=== PATIENT | female | born 1960 | race Caucasian/White ===

== ENCOUNTER → 2016-10-13 | Outpatient (CLI) | payer MEDICARE, BC ==
[~2016-10-13] MED LIST: AMBI5TAB PO; BACT800T5 PO; CYCL5TAB PO; DILA8TAB4 PO; DULC100C PO; EFFE150C PO; FLEE5TAB PO; GABA400C5 PO; IBUP400T20 PO; METH5TAB PO; MIRA33504 PO; MOTR200T4 PO; SOMA250T PO; VENL75TA PO; XANA2TAB2 PO; XARE20TA PO
[2016-10-13 12:44] LABS: AUTOMATED NEUTROPHIL # 2.7 TH/MM3 (1.8-7.7); BASOPHIL % 0.5 % (0.0-2.0); EOSINOPHIL # 0.2 TH/MM3 (0-0.4); EOSINOPHIL % 3.8 % (0.0-4.0); HEMATOCRIT 38.6 % (35.0-46.0); HEMO FLAGS DIFF FINAL; LYMPH % 41.2 % (9.0-44.0); LYMPHOCYTE # 2.4 TH/MM3 (1.0-4.8); MEAN CELL VOLUME 83.7 FL (80.0-100.0); MEAN CORPUSCULAR HEMOGLOBIN 27.8 PG (27.0-34.0); MEAN CORPUSCULAR HGB CONC 33.2 % (32.0-36.0); MONO % 8.2 % (0.0-8.0); NEUT % 46.3 % (16.0-70.0); PLATELET COUNT 226 TH/MM3 (150-450); RED BLOOD COUNT 4.61 MIL/MM3 (4.00-5.30); RED CELL DISTRIBUTION WIDTH 14.2 % (11.6-17.2); WHITE BLOOD COUNT 5.9 TH/MM3 (4.0-11.0)
[2016-10-13 12:53] LABS: APTT (PATIENT) 27.7 SEC (24.3-30.1); INTERNATIONAL NORMALIZED RATIO 0.9 RATIO; PROTHROMBIN TIME - PATIENT 10.3 SEC (9.8-11.6)
[2016-10-13 13:05] LABS: ANION GAP 7 MEQ/L (5-15); AST (GOT) 13 U/L (15-37); BICARBONATE 30.3 MEQ/L (21.0-32.0); BLOOD UREA NITROGEN 9 MG/DL (7-18); CHLORIDE 100 MEQ/L (98-107); GLOMERULAR FILTRATION RATE 74 ML/MIN (>89); GLUCOSE,FASTING 95 MG/DL (74-99); POTASSIUM 3.8 MEQ/L (3.5-5.1); SODIUM (NA) 137 MEQ/L (136-145)
[2016-10-13 13:05] LABS: BACTERIA, URINE MANY /hpf; BLOOD, URINE SMALL (NEG); COMMENT (UR) CULTURE INDICATED; CULTURE IF INDICATED CULTURE INDICATED; GLUCOSE,URINE NEG (NEG); KETONE, URINE NEG (NEG); MUCUS URINE FEW /lpf (OCC); NITRITE,URINE NEG (NEG); PH, URINE 5.5 (5.0-8.5); SQUAMOUS EPITHELIAL CELL URINE 4 /hpf (0-5); URINE COLOR YELLOW (YELLW/STRAW)
[2016-10-13 13:08] LABS: ALKALINE PHOSPHATASE 107 U/L (45-117); ALT (GPT) 16 U/L (10-53); TOTAL BILIRUBIN ADULT 0.3 MG/DL (0.2-1.0)
--- NOTE | 2016-10-14 13:03 | EKG ---
Date Performed: 10/13/2016 Time Performed: 12:15:07 PTAGE: 56 years EKG: SINUS BRADYCARDIA BORDERLINE ECG NO PREVIOUS TRACING DOCTOR: Gabe Bowen Interpretating Date/Time 10/14/2016 12:59:20
== END ==
LOC: CPRE 11:47
PROVIDERS: ATTEND Neurological Surgery
DX: Z01.810 Encounter for preprocedural cardiovascular examination (principal); Z01.811 Encounter for preprocedural respiratory examination; Z01.812 Encounter for preprocedural laboratory examination; G89.29 Other chronic pain
CPT/HCPCS: 36415; 80053; 81001; 85025; 85610; 85730; 87077; 87086; 87186; 93005

== ENCOUNTER → 2016-10-20 | Day surgery (SDC) | payer MEDICARE, BC ==
[~2016-10-20] VITALS: Ht 167.6 cm; Wt 76.9 kg
[~2016-10-20] MED LIST changes: +*HYDROmorphone PF 1 MG VIAL PERIprocedural Use ONLY ONE; +ACETAMINOPHEN 1000 MG/100 ML VIAL IV ONE; -AMBI5TAB PO; +BUPIVACAINE HCL PF 0.5% 30 ML VIAL ONE; -CYCL5TAB PO; +DO NOT ADM ANY ANTICOAGULANT DRUGS XX PRN; +FAMOTIDINE 20 MG/2 ML VIAL ONE; +GELFOAM SIZE 100 ONE; +HYDROmorphone HCL PF 2 MG/ML VIAL IV PRN; +HYDROmorphone HCL PF 2 MG/ML VIAL ONE; +INSULIN HUMAN REGULAR 1,000 UNITS/10 ML VIAL SQ PRN; +LACTATED RINGER'S 1000 ML INJ 1,000 ML IV ONE; +LACTATED RINGER'S 1000 ML IV SCH; +LIDOCAINE 1%/EPINEPHrine 1:100,000 SOLN 30 ML VIAL ONE; +METOCLOPRAMIDE HCL 10 MG/2 ML VIAL ONE; +METOPROLOL TARTRATE 25 MG TAB PO PRN; +MIDAZOLAM HCL 2 MG/2 ML VIAL ONE; -MOTR200T4 PO; +NEOSTIGMINE METHYLSULFATE 10 MG/10 ML VIAL IV PUSH ONE; +ONDANSETRON HCL 4 MG/2 ML VIAL IV PUSH ONE; +ONDANSETRON HCL 4 MG/2 ML VIAL IV PUSH PRN; +PROPOFOL 200 MG/20 ML AMP IV ONE; +SODIUM CHLORID 0.9% 500 ML IV SCH; -SOMA250T PO; +THROMBIN (TOPICAL) 5,000 UNIT VIAL ONE; -XARE20TA PO; +ceFAZolin 2 GM PREMIX 50 ML IV SCH; +ceFAZolin 2 GM PREMIX 50 ML ONE; +ePHEDrine/NS 25 MG/5 ML SYR IV ONE; +fentaNYL CITRATE 250 MCG/5 ML AMP ONE
[2016-10-20 07:07] VITALS: BP 113/41; PULSE 50; RESP 16; TEMP 98; O2SAT 94
--- NOTE | 2016-10-20 10:53 | RADRPT ---
EXAM DATE/TIME: 10/20/2016 10:25 COMPARISON: No previous studies available for comparison. INDICATIONS : Lead placement T8,T9. MEDICAL HISTORY : None. SURGICAL HISTORY : None. ENCOUNTER: Initial ACUITY: 1 day PAIN SCORE: Non-responsive. LOCATION: Thoracic spine. FINDINGS: 2 AP coned-down views of the lower thoracic spine were obtained and demonstrate leads in place projec ramez over the lower thoracic spine. The exact level cannot be ascertained since the thoracolumbar junc tion is not visualized. CONCLUSION: Leads in place over the lower thoracic spine. Jareth Villalobos MD on October 20, 2016 at 10:51 Board Certified Radiologist. This report was verified electronically.
[2016-10-20 12:10] VITALS: BP 114/52; PULSE 56; RESP 16; TEMP 97; O2SAT 99
--- NOTE | 2016-10-21 16:57 | MP ---
cc: DANIEL THOMASON MD DATE OF SURGERY 10/20/2016 PREOPERATIVE DIAGNOSIS Chronic pain syndrome. POSTOPERATIVE DIAGNOSIS Chronic pain syndrome. PROCEDURE Implant of Penta lead from [employer], serial number [id number], reference number 3228 and Pro[employer] 5 Elite intimal pulse generator, reference number 3660, serial number [id number]. INDICATION The patient is a 56-year-old lady who had previous back surgery and years of medical management for chronic back and leg pain. She has hyperesthetic pain with burning and sharp pain in her right leg as well as mechanical back pain. She underwent a trial with almost complete relief of her pain with stimulation with 12 octades closer to the midline at T8-9. She presents now for implantation of a permanent stimulator. ANESTHESIA General SURGEON Ame Thomason MD TECHNIQUE The patient was brought to the operating room, placed supine on the OR cart. Anesthesia was induced and the patient intubated orally. She was then turned prone onto a Russell frame. The T8-9 vertebra were identified with fluoroscopic examination and clearly marked. The internal pulse generator was planned in the left side in the mid axillary fat pad in a region chosen by the patient prior to surgery. Both incisions were prepped on the back with Betadine followed by ChloraPrep and allowed to dry. Both incisions were infiltrated with 1% lidocaine with epinephrine in a 1:1 mixture with 0.5% Marcaine. The incision was made first at the internal pulse generator site, measured 5 cm in length. A subcutaneous pocket was made with the monopolar cautery. The wound was then packed with a Telfa and allowed to dry. The back incision was then opened in the midline at T8-9. A subperiosteal dissection was carried out at T8-9. The microscope was then brought into the field. Under the microscope, a T9 laminotomy was performed. However, she continued to have scar tissue preventing advancement of the Penta trial and the a laminectomy was performed at T9. This allowed the Penta lead to be advanced without difficulty in the epidural space between the pedicles of T8 and T9 in the midline slightly to the right side. Hemostasis was obtained with bone wax on the bone. Bipolar cautery for the epidural veins, FloSeal. A relief loop was left in the epidural space and the lead was further secured with 4 mL of fibrin glue. The leads were then tunneled to the internal pulse generator. They were then connected to the IPG and torqued to the usual torque with the torque screwdriver. Impedances were checked and they were between 200 and 1000 ohms. The IPG was secured in its pocket. The battery wound was closed at the dermal level with 2-0 Vicryl suture and at the skin level with 4-0 subcuticular Monocryl suture. In the back, the muscle were was reapproximated with 2-0 Vicryl sutures. The fascia was closed with interrupted 2-0 Vicryl sutures. The dermis was closed with interrupted 2-0 Vicryl sutures. The skin edges were reapproximated with 4-0 Monocryl suture. Dermabond was used on the battery pocket skin incision. Steri-Strips were used on the back incision. Both incisions were then further dressed with Telfa and Medipore tape. The patient was then extubated and brought back to recovery room in a stable condition. MD JUSTIN Burnett/ /10:16 AM /4:46 PM [facility]
== END | disposition home or self-care (01) ==
LOC: HSDC 06:29
PROVIDERS: ATTEND Neurological Surgery
DX: G89.29 Other chronic pain (principal); M79.604 Pain in right leg; M96.1 Postlaminectomy syndrome, not elsewhere classified; R20.3 Hyperesthesia; R35.0 Frequency of micturition; R15.9 Full incontinence of feces; F17.210 Nicotine dependence, cigarettes, uncomplicated; R26.2 Difficulty in walking, not elsewhere classified; K59.00 Constipation, unspecified; R27.0 Ataxia, unspecified; K21.9 Gastro-esophageal reflux disease without esophagitis; D64.9 Anemia, unspecified
CPT/HCPCS: 00600; 63655; 63685; 72020; 76000; 86850; 86900; 86901; C1767; C1778; J0131; J0690; J1170; J2250; J2405; J2710; J2765; J3010; J7120

== ENCOUNTER 2017-05-03 18:34 | Emergency (ER) | payer MEDICARE, BC ==
[~2017-05-03] VITALS: Ht 167.6 cm; Wt 70.0 kg
[~2017-05-03 18:34] MED LIST changes: -*HYDROmorphone PF 1 MG VIAL PERIprocedural Use ONLY ONE; -ACETAMINOPHEN 1000 MG/100 ML VIAL IV ONE; -BACT800T5 PO; -BUPIVACAINE HCL PF 0.5% 30 ML VIAL ONE; -DO NOT ADM ANY ANTICOAGULANT DRUGS XX PRN; -FAMOTIDINE 20 MG/2 ML VIAL ONE; -FLEE5TAB PO; -GABA400C5 PO; -GELFOAM SIZE 100 ONE; -HYDROmorphone HCL PF 2 MG/ML VIAL IV PRN; -HYDROmorphone HCL PF 2 MG/ML VIAL ONE; -INSULIN HUMAN REGULAR 1,000 UNITS/10 ML VIAL SQ PRN; -LACTATED RINGER'S 1000 ML INJ 1,000 ML IV ONE; -LACTATED RINGER'S 1000 ML IV SCH; -LIDOCAINE 1%/EPINEPHrine 1:100,000 SOLN 30 ML VIAL ONE; -METOCLOPRAMIDE HCL 10 MG/2 ML VIAL ONE; -METOPROLOL TARTRATE 25 MG TAB PO PRN; -MIDAZOLAM HCL 2 MG/2 ML VIAL ONE; -NEOSTIGMINE METHYLSULFATE 10 MG/10 ML VIAL IV PUSH ONE; -ONDANSETRON HCL 4 MG/2 ML VIAL IV PUSH ONE; -ONDANSETRON HCL 4 MG/2 ML VIAL IV PUSH PRN; -PROPOFOL 200 MG/20 ML AMP IV ONE; -SODIUM CHLORID 0.9% 500 ML IV SCH; -THROMBIN (TOPICAL) 5,000 UNIT VIAL ONE; -ceFAZolin 2 GM PREMIX 50 ML IV SCH; -ceFAZolin 2 GM PREMIX 50 ML ONE; -ePHEDrine/NS 25 MG/5 ML SYR IV ONE; -fentaNYL CITRATE 250 MCG/5 ML AMP ONE
[2017-05-03 18:36] VITALS: BP 130/57; PULSE 64; RESP 20; TEMP 98.1; O2SAT 98
--- NOTE | 2017-05-03 18:46 | PD ---
Physical Exam Time Seen by Provider: 18:44 Narrative 57yo F c/o left sided neuro stimulator is displaced since waking up this morning. Patient seen in triage. VS reviewed. Awaiting bed placement. Data Data Last Documented VS Vital Signs Date Time Temp Pulse Resp B/P (MAP) Pulse Ox O2 Delivery O2 Flow Rate FiO2 05/03/17 18:36 98.1 64 20 130/57 (81) 98 Room Air MDM Supervised Visit with MARGIE: Zohra Nagy May 03, 2017 18:45
== END 2017-05-03 23:00 | disposition left against medical advice (07) ==
LOC: NED 18:34
DX: T85.890A Other specified complication of nervous system prosthetic devices, implants and grafts, initial encounter (principal); Z53.21 Procedure and treatment not carried out due to patient leaving prior to being seen by health care provider
CPT/HCPCS: 99281